=== PATIENT | female | born 1960 | race Caucasian/White ===

== ENCOUNTER → 2016-08-25 | Outpatient (CLI) | payer BC | LOC: LAB 12:56 | DX: R07.9 Chest pain, unspecified (principal); R42 Dizziness and giddiness ==

== ENCOUNTER → 2016-08-28 | Outpatient (CLI) | payer BC | LOC: CARDREHAB 15:47 | DX: R42 Dizziness and giddiness (principal); R07.9 Chest pain, unspecified; R00.2 Palpitations ==

== ENCOUNTER → 2017-09-07 | Outpatient (CLI) | payer BC | LOC: PT 08:35 → EDSTATUS 09:50 → PT 15:24 | DX: Z47.1 Aftercare following joint replacement surgery (principal); Z96.641 Presence of right artificial hip joint ==

== ENCOUNTER 2017-10-16 09:00 | Outpatient (RCR) | payer BC | END 2017-10-16 09:30 | disposition home or self-care (01) | LOC: PT 09:00 | DX: Z47.1 Aftercare following joint replacement surgery (principal); Z96.641 Presence of right artificial hip joint ==

== ENCOUNTER 2018-05-26 15:00 | Outpatient (RCR) | payer BC | END 2018-05-26 15:30 | disposition home or self-care (01) | LOC: PT 15:00 | DX: Z47.1 Aftercare following joint replacement surgery (principal); Z96.642 Presence of left artificial hip joint ==

== ENCOUNTER → 2021-11-12 | Outpatient (CLI) | payer BC | LOC: RAD 10:35 → VAS 10:35 → RAD 10:45 | DX: I35.8 Other nonrheumatic aortic valve disorders (principal) ==